=== PATIENT | female | born 1970 | race Caucasian/White ===

== ENCOUNTER 2017-02-28 22:32 | Emergency (ER) | payer BC ==
[~2017-02-28] VITALS: Ht 170.2 cm; Wt 101.2 kg
[~2017-02-28 22:32] MED LIST: ASPIRIN LOW81 M1 PO; CELEXA40 MG PO; CHOLESTEROL MED; HYDROCHLOROT25 MG PO; LESCOL20 MG PO; LISINOP/HCTZ1 TA1 PO; LISINOPRIL20 MG PO; MELATONIN1 M1; METFORMIN500 M1 PO; MULTIVITAM11 OR; NAPROSYN500 MG PO; ROBITUSSIN AC10 ML PO; SYNTHROID25 MCG PO; ZITHROMAX250 MG PO
[2017-02-28] MEDS ORDERED: ROPINIROLE0.5 MG PO (23:14)
[2017-02-28] MEDS ORDERED: SIMVASTATIN40 MG PO (23:15)
[2017-02-28] MEDS ORDERED: INVOKANA300 MG PO (23:17)
[2017-02-28] MEDS ORDERED: VESICARE10 MG PO (23:17)
[2017-02-28] MEDS ORDERED: OMEPRAZOLE10 MG PO (23:18)
[2017-02-28] MEDS ORDERED: ALL DAY ALLG10 MG PO (23:19)
[2017-02-28] MEDS ORDERED: FORTIFY DAILY P1 CAP PO (23:20)
[2017-03-01 00:20] LABS: URINE BILIRUBIN - DIPSTICK NEGATIVE (NEGATIVE); URINE BLOOD DIPSTICK NEGATIVE (NEGATIVE); URINE CLARITY CLEAR; URINE COLOR YELLOW; URINE GLUCOSE - DIPSTICK >=1000 mg/dL (NEGATIVE); URINE KETONE NEGATIVE (NEGATIVE); URINE LEUK ESTERASE NEGATIVE (NEGATIVE); URINE NITRITE - DIPSTICK NEGATIVE (Negative); URINE PROTEIN - DIPSTICK NEGATIVE (NEG-TRACE); URINE UROBILINOGEN - DIPSTICK 0.2 E.U./dL (0.2)
[2017-03-01 00:36] LABS: HEMATOCRIT 42.7 % (37.0-47.0); HEMOGLOBIN 14.5 g/dl (12.0-16.0); IMMATURE GRANULOCYTES 0.9 % (0.0-1.0); MEAN CELL VOLUME 94.5 fL CALC (80.0-100.0); MEAN CORPUSCULAR HGB 32.1 pG CALC (26.0-32.0); NEUT# 4.37 thou/uL (2.00-7.15); RED BLOOD COUNT 4.52 mill/uL (4.20-5.60); RED CELL DISTRI WIDTH 13.5 % (11.5-15.5)
[2017-03-01 00:43] LABS: ALBUMIN 5.1 g/dL (3.2-5.0); ALKALINE PHOSPHATASE 94 u/l (38-126); ANION GAP 21 (6-22 (CALC)); BILIRUBIN, TOTAL 0.7 mg/dL (0.0-1.4); BUN 21 mg/dL (7-17); BUN/CREATININE RATIO 18 (12-20 (CALC)); CALCIUM 10.5 mg/dL (8.4-10.2); CARBON DIOXIDE 22 mmol/l (22-30); CHLORIDE 101 mmol/l (95-108); CREATININE 1.2 mg/dL (0.5-1.0); GFR 49 ML/MIN (>=60 (CALC)); GFR FOR AFR.AMER. 59 ML/MIN (>=60 (CALC)); GLUCOSE 189 mg/dL (65-105); POTASSIUM 4.4 mmol/l (3.5-5.1); SGOT/AST 96 u/l (14-36); SGPT/ALT 111 u/l (9-52); SODIUM 140 mmol/l (137-146); TOTAL PROTEIN 7.9 g/dL (6.3-8.2)
[2017-03-01 00:58] LABS: MYOGLOBIN 42 ng/mL (0 - 62)
[2017-03-01] MEDS ORDERED: ANTIVERT PO (03:12)
[2017-03-01 03:26] VITALS: BP 111/68
== END 2017-03-01 03:26 | disposition home or self-care (01) | DRG 149 ==
LOC: ED 22:32
PROVIDERS: Emergency Medicine
DX: R42 Dizziness and giddiness (principal); I10 Essential (primary) hypertension; E11.9 Type 2 diabetes mellitus without complications; E78.5 Hyperlipidemia, unspecified; F32.9 Major depressive disorder, single episode, unspecified; Z91.14 Patient's other noncompliance with medication regimen

== ENCOUNTER 2018-09-02 16:27 | Emergency (ER) | payer BC ==
[~2018-09-02] VITALS: Ht 170.2 cm; Wt 97.3 kg
[~2018-09-02 16:27] MED LIST changes: +ALL DAY ALLG10 MG PO; +ANTIVERT PO; +FORTIFY DAILY P1 CAP PO; +INVOKANA300 MG PO; +OMEPRAZOLE10 MG PO; +ROPINIROLE0.5 MG PO; +SIMVASTATIN40 MG PO; +VESICARE10 MG PO
[2018-09-02] MEDS ORDERED: PRAVASTATIN20 MG PO (16:38)
[2018-09-02] MEDS ORDERED: VICTOZA18 MG/3 ML SC (16:39)
[2018-09-02 17:14] LABS: HEMATOCRIT 38.2 % (37.0-47.0); IMMATURE GRANULOCYTES 0.5 % (0.0-5.0); MEAN CORPUSCULAR HGB 32.3 pG CALC (26.0-32.0); NEUT# 2.75 thou/uL (2.00-7.15); RED BLOOD COUNT 4.02 mill/uL (4.20-5.60); RED CELL DISTRI WIDTH 12.7 % (11.5-15.5)
[2018-09-02 17:16] LABS: URINE BILIRUBIN - DIPSTICK NEGATIVE (NEGATIVE); URINE BLOOD DIPSTICK NEGATIVE (NEGATIVE); URINE COLOR YELLOW; URINE GLUCOSE - DIPSTICK NEGATIVE (NEGATIVE); URINE KETONE NEGATIVE (NEGATIVE); URINE LEUK ESTERASE NEGATIVE (NEGATIVE); URINE NITRITE - DIPSTICK NEGATIVE (Negative); URINE PROTEIN - DIPSTICK NEGATIVE (NEG-TRACE); URINE UROBILINOGEN - DIPSTICK 0.2 E.U./dL (0.2)
[2018-09-02 17:19] LABS: URINE CLARITY HAZY
[2018-09-02 17:29] LABS: ALBUMIN 4.2 g/dL (3.2-5.0); ALKALINE PHOSPHATASE 84 u/l (38-126); ANION GAP 15 (6-22 (CALC)); BILIRUBIN, TOTAL 0.7 mg/dL (0.0-1.4); BUN 12 mg/dL (7-17); BUN/CREATININE RATIO 15 (12-20 (CALC)); CARBON DIOXIDE 24 mmol/l (22-30); CHLORIDE 105 mmol/l (95-108); CREATININE 0.8 mg/dL (0.5-1.0); GFR > 60 ML/MIN (>=60 (CALC)); GFR FOR AFR.AMER. > 60 ML/MIN (>=60 (CALC)); LIPASE 72 u/l (23-300); POTASSIUM 4.5 mmol/l (3.5-5.1); SGOT/AST 38 u/l (14-36); SODIUM 140 mmol/l (137-146); TOTAL PROTEIN 6.8 g/dL (6.3-8.2)
[2018-09-02 17:45] LABS: BETA-HCG, QUANT(RESULT NUMBER) <2 mIU/mL
[2018-09-02] MEDS ORDERED: ZOFRAN4 M1 PO (19:33)
[2018-09-02 19:51] VITALS: BP 132/88
== END 2018-09-02 19:51 | disposition home or self-care (01) | DRG 392 ==
LOC: ED 16:27
PROVIDERS: Family Medicine
DX: R10.13 Epigastric pain (principal); N28.89 Other specified disorders of kidney and ureter; R93.5 Abnormal findings on diagnostic imaging of other abdominal regions, including retroperitoneum; E11.9 Type 2 diabetes mellitus without complications; I10 Essential (primary) hypertension; E78.5 Hyperlipidemia, unspecified; G47.30 Sleep apnea, unspecified; G25.81 Restless legs syndrome; F32.9 Major depressive disorder, single episode, unspecified; K21.9 Gastro-esophageal reflux disease without esophagitis
CPT/HCPCS: Q9967

== ENCOUNTER 2018-10-03 11:03 | Day surgery (SDC) | payer BC ==
[~2018-10-03 11:03] MED LIST changes: +PRAVASTATIN20 MG PO; +VICTOZA18 MG/3 ML SC; +ZOFRAN4 M1 PO
[2018-10-03 15:06] VITALS: BP 128/85
== END 2018-10-03 15:20 | disposition home or self-care (01) | DRG 392 ==
LOC: ENDO 11:03 → ORM 15:45 → ENDO 15:45 → ORM 16:05
PROVIDERS: ATTEND Internal Medicine Gastroenterology
PROC: 0DJD8ZZ Inspection of Lower Intestinal Tract, Via Natural or Artificial Opening Endoscopic (ICD-10-PCS; principal; 2018-10-03)
PROC: 0DB48ZX Excision of Esophagogastric Junction, Via Natural or Artificial Opening Endoscopic, Diagnostic (ICD-10-PCS; 2018-10-03)
PROC: 0DB78ZX Excision of Stomach, Pylorus, Via Natural or Artificial Opening Endoscopic, Diagnostic (ICD-10-PCS; 2018-10-03)
DX: K58.9 Irritable bowel syndrome, unspecified (principal); K57.30 Diverticulosis of large intestine without perforation or abscess without bleeding; K21.0 Gastro-esophageal reflux disease with esophagitis; K29.50 Unspecified chronic gastritis without bleeding; K44.9 Diaphragmatic hernia without obstruction or gangrene; K31.9 Disease of stomach and duodenum, unspecified; K76.0 Fatty (change of) liver, not elsewhere classified; I10 Essential (primary) hypertension; E11.9 Type 2 diabetes mellitus without complications; F32.9 Major depressive disorder, single episode, unspecified; G47.30 Sleep apnea, unspecified; R16.0 Hepatomegaly, not elsewhere classified; Z79.899 Other long term (current) drug therapy; Z80.0 Family history of malignant neoplasm of digestive organs; Z86.010 Personal history of colon polyps; K64.4 Residual hemorrhoidal skin tags

== ENCOUNTER 2021-12-27 00:20 | Observation (INO) | payer OTHER ==
[~2021-12-27] VITALS: Ht 172.7 cm; Wt 96.8 kg
[2021-12-27] VITALS (34 sets, daily range): BP systolic 78–124; BP diastolic 41–78
[2021-12-27] MEDS ORDERED: NITROFURANTN100 MG PO (00:36)
[2021-12-27] MEDS ORDERED: LIPITOR20 M1 PO (00:37)
[2021-12-27] MEDS ORDERED: LISINOP/HCTZ1 TA1 PO (00:38)
[2021-12-27] MEDS ORDERED: PHENTERMINE37.5 MG PO (00:39)
[2021-12-27 00:58] LABS: HEMATOCRIT 38.3 % (37.0-47.0); IMMATURE GRANULOCYTES 0.6 % (0.0-5.0); MEAN CELL VOLUME 94.8 fL CALC (80.0-100.0); MEAN CORPUSCULAR HGB 32.2 pG CALC (26.0-32.0); MEAN CORPUSCULAR HGB CONC 33.9 g/dL CAL (32.0-36.0); NEUT# 8.93 thou/uL (2.00-7.15); RED BLOOD COUNT 4.04 mill/uL (4.20-5.60); RED CELL DISTRI WIDTH 12.7 % (11.5-15.5)
[2021-12-27 01:12] LABS: ALBUMIN 4.2 g/dL (3.2-5.0); ALKALINE PHOSPHATASE 114 u/l (38-126); ANION GAP 20 (6-22 (CALC)); BUN 11 mg/dL (7-17); BUN/CREATININE RATIO 11 (12-20 (CALC)); CARBON DIOXIDE 20 mmol/l (22-30); CHLORIDE 100 mmol/l (95-108); GFR 59 ML/MIN (>=60 (CALC)); GFR FOR AFR.AMER. > 60 ML/MIN (>=60 (CALC)); POTASSIUM 3.8 mmol/l (3.5-5.1); SGOT/AST 28 u/l (14-36); SODIUM 136 mmol/l (137-146); TOTAL PROTEIN 7.6 g/dL (6.3-8.2)
[2021-12-27 01:15] LABS: BILIRUBIN, TOTAL 1.8 mg/dL (0.0-1.4)
[2021-12-27 02:21] LABS: URINE BILIRUBIN - DIPSTICK NEGATIVE (NEGATIVE); URINE BLOOD DIPSTICK NEGATIVE (NEGATIVE); URINE COLOR YELLOW; URINE GLUCOSE - DIPSTICK NEGATIVE (NEGATIVE); URINE KETONE 40 mg/dL (NEGATIVE); URINE LEUK ESTERASE TRACE (NEGATIVE); URINE PROTEIN - DIPSTICK TRACE mg/dL (NEG-TRACE)
[2021-12-27 02:22] LABS: URINE NITRITE - DIPSTICK NEGATIVE (Negative)
[2021-12-27] MEDS ORDERED: LEVAQUIN750 M1 PO (11:37)
== END 2021-12-27 13:20 | disposition home or self-care (01) | DRG 690 ==
LOC: ED 00:20 → ED-I 01:16 → ED 01:16 → ED-I 04:00 → ED 04:35 → ICU 04:36
PROVIDERS: Emergency Medicine; ADMIT Hospitalist; ATTEND Hospitalist
DX: N12 Tubulo-interstitial nephritis, not specified as acute or chronic (principal); E87.2 Acidosis; I10 Essential (primary) hypertension; E11.9 Type 2 diabetes mellitus without complications; E78.5 Hyperlipidemia, unspecified; K21.9 Gastro-esophageal reflux disease without esophagitis; G47.30 Sleep apnea, unspecified; Z79.84 Long term (current) use of oral hypoglycemic drugs; Z87.440 Personal history of urinary (tract) infections; Z20.822 Contact with and (suspected) exposure to COVID-19
CPT/HCPCS: Q9967

== ENCOUNTER 2023-02-06 00:28 | Emergency (ER) | payer OTHER ==
[~2023-02-06] VITALS: Ht 172.7 cm; Wt 90.0 kg
[~2023-02-06 00:28] MED LIST changes: +LEVAQUIN750 M1 PO; +LIPITOR20 M1 PO; +NITROFURANTN100 MG PO; +PHENTERMINE37.5 MG PO
[2023-02-06 01:06] LABS: BASO% 0.4 % (0-3); EOS% 0.8 % (0-8); HEMATOCRIT 39.7 % (37.0-47.0); HEMOGLOBIN 13.2 g/dl (12.0-16.0); IMMATURE GRANULOCYTES 0.2 % (0.0-5.0); LYMPH% 64.3 % (15-41); MEAN CELL VOLUME 96.1 fL CALC (80.0-100.0); MEAN CORPUSCULAR HGB CONC 33.2 g/dL CAL (32.0-36.0); MONO% 7.6 % (2-13); NEUT# 2.83 thou/uL (2.00-7.15); NEUT% 26.7 % (42-76); RED BLOOD COUNT 4.13 mill/uL (4.20-5.60); RED CELL DISTRI WIDTH 12.5 % (11.5-15.5)
[2023-02-06 01:19] LABS: ALBUMIN 4.8 g/dL (3.2-5.0); ALKALINE PHOSPHATASE 74 u/l (38-126); ANION GAP 18 (6-22 (CALC)); BUN 12 mg/dL (7-17); BUN/CREATININE RATIO 14 (12-20 (CALC)); CARBON DIOXIDE 25 mmol/l (22-30); CHLORIDE 100 mmol/l (95-108); CREATININE 0.9 mg/dL (0.5-1.0); ETHYL ALCOHOL 278 mg/dl (0-30); GFR FOR AFR.AMER. > 60 ML/MIN (>=60 (CALC)); GFR OTHER RACES > 60 ML/MIN (>=60 (CALC)); SGOT/AST 155 u/l (14-36); SODIUM 139 mmol/l (137-146); TOTAL PROTEIN 7.5 g/dL (6.3-8.2)
[2023-02-06 01:40] VITALS: BP 104/63
== END 2023-02-06 01:53 | disposition home or self-care (01) | DRG 914 ==
LOC: ED 00:28
PROVIDERS: Emergency Medicine
DX: S09.90XA Unspecified injury of head, initial encounter (principal); F10.129 Alcohol abuse with intoxication, unspecified; I10 Essential (primary) hypertension; E11.9 Type 2 diabetes mellitus without complications; E78.5 Hyperlipidemia, unspecified; F32.A Depression, unspecified; K21.9 Gastro-esophageal reflux disease without esophagitis; W07.XXXA Fall from chair, initial encounter; Y93.89 Activity, other specified; Y92.009 Unspecified place in unspecified non-institutional (private) residence as the place of occurrence of the external cause; Y90.8 Blood alcohol level of 240 mg/100 ml or more